=== PATIENT | female | born 1955 | race Caucasian/White ===

== ENCOUNTER → 2020-07-07 06:45 | Outpatient (CLI) | payer MEDICARE, SELFPAY ==
[2020-07-07 16:12] LABS: SARS-CoV-2 RNA PCR Negative
== END ==
PROVIDERS: PCP Family Medicine; Visit Provider Nurse Practitioner Family
DX: J98.8 Other specified respiratory disorders (principal); Z20.822 Contact with and (suspected) exposure to COVID-19
CPT/HCPCS: C9803; U0003; U0005

== ENCOUNTER 2020-08-31 12:11 | Outpatient (CLI) | payer MEDICARE, SELFPAY ==
--- NOTE | ~2020-08-31 | XR_ITS ---
EXAMINATION: XR chest 2V DATE: 08/31/2020 12:30 INDICATION: Cough TECHNIQUE: Frontal and lateral views of the chest are obtained COMPARISON: 11/02/2018 FINDINGS: The lungs are free of acute opacities. There is no pleural effusion or pneumothorax. The ca rdiomediastinal silhouette is normal. There are bridging osteophytes at multiple levels in the spine, consistent with diffuse idiopathic skeletal hyperostosis (DISH). Suture anchors are noted in the rig ht humeral head. IMPRESSION: 1. No acute cardiopulmonary abnormality. Reviewed, dictated and finalized at location B.
== END 2020-08-31 12:12 | disposition home or self-care (01) ==
LOC: ANHIMG 12:13
PROVIDERS: PCP Family Medicine; Visit Provider Family Medicine
DX: R05 Cough (principal)
CPT/HCPCS: 71046

== ENCOUNTER 2020-09-14 14:18 | Outpatient (CLI) | payer MEDICARE, SELFPAY ==
--- NOTE | ~2020-09-14 | MM_ITS ---
EXAMINATION: MM screening marilou BI w cheri HISTORY: Screening TECHNIQUE: Craniocaudal and mediolateral oblique 3-D tomosynthesis images were obtained and synthetic 2-D images were generated. CAD analysis was submitted and interpreted. COMPARISON: Comparison to multiple prior studies sequentially, with oldest reviewed study dated 05/10. BREAST PARENCHYMAL COMPOSITION: The breasts are almost entirely fatty. FINDINGS: There is no evidence of suspicious mass, calcification, or architectural distortion to sugg est malignancy in either breast. There has been no suspicious interval change. IMPRESSION: 1. No mammographic evidence of malignancy. 2. Recommend routine screening mammography in one year. BI-RADS Category 1: Negative Reviewed, dictated and finalized at location A.
== END 2020-09-14 14:19 | disposition home or self-care (01) ==
LOC: ANHIMG 14:21
PROVIDERS: PCP Family Medicine; Visit Provider Family Medicine
DX: Z12.31 Encounter for screening mammogram for malignant neoplasm of breast (principal)
CPT/HCPCS: 77063; 77067

== ENCOUNTER 2022-01-15 09:22 | Observation (INO) | payer MEDICARE, MEDICAID, SELFPAY ==
[2022-01-15] VITALS (10 sets, daily range): BP systolic 139–169; BP diastolic 77–101; PULSE 88–106; RESP 15–22; TEMP 36.4–36.7; O2SAT 96–98; BMI 56.5
--- NOTE | 2022-01-15 | ECHO_ITS ---
Patient Info Name: Radha Carranza Age: 66 years : 1955 Gender: Female Ht: 64 in Wt: 300 lbs BSA: 2.56 m2 HR: 90 bpm BP: 138 / 77 mmHg Heart Rhythm: Sinus Rhythm Technical Quality: Fair Exam Date: 01/15/2022 1:32 PM Exam Location: [facility] Card Pulmonary Patient Status: Emergency Admit Date: 01/15/2022 Staff Ordering Physician: Sandra Lamb PA-C Brokerage Branch Manager: Charlette Leblanc RDCS Attending Provider: Joey Clark MD Referring Physician: Zainab VO; Exam Type: CA echo dop color flow w con Study Info Indications - new onset chf Complete two-dimensional, color flow and Doppler transthoracic echocardiogram is performed with contrast to opacify the left ventricle and to improve the deliniation of the left ventricle endocardial borders. Contrast/Agitated Saline Contrast/Ag. Saline: Definity Amount: 4.00 ml Administered By: Charlette Leblanc RDCS Existing IV Access: Yes IV Access Condition: patent with no signs of infiltration Summary 1. Technically difficult study due to body habitus. 2. Left ventricular systolic function is normal, estimated at 50-55%. 3. There is moderately increased left ventricular wall thickness. 4. The left ventricular diastolic function is grade I diastolic dysfunction. 5. Right ventricular systolic function is normal. 6. Right atrial chamber dimension is mildly enlarged. 7. There is mild aortic valve calcification. 8. There is mild to moderate aortic valve stenosis with a peak velocity of 199.94 cm/s, mean gradient of 9 mmHg, and aortic valve area of 1.26 cm2. Left Ventricle Left ventricular chamber dimension is normal. Left ventricular systolic function is normal, estimated at 50-55%. There is moderately increased left ventricular wall thickness. The left ventricular diastolic function is grade I diastolic dysfunction. Right Ventricle Right ventricular chamber dimension is not well visualized. Right ventricular systolic function is normal. Left Atria Left atrial chamber dimension is normal. Right Atria Right atrial chamber dimension is mildly enlarged. Aortic Valve There is no aortic valve regurgitation. The aortic valve is probable trileaflet. There is mild to moderate aortic valve stenosis with a peak velocity of 199.94 cm/s, mean gradient of 9 mmHg, and aortic valve area of 1.26 cm2. There is mild aortic valve calcification. Pulmonic Valve The pulmonic valve is not well visualized. Mitral Valve The mitral valve has thickened leaflets. There is trace mitral valve regurgitation. Tricuspid Valve There is trace tricuspid valve regurgitation. Pericardium/Pleural There is no pericardial effusion. Inferior Vena Cava Normal inferior vena cava with >50% collapse upon inspiration consistent with normal right atrial pressure. Aorta The aortic root size at the sinus of Valsalva is normal. Left Ventricular Outflow Tract Name Value Normal LVOT 2D LVOT Diameter 2.00 cm LVOT Doppler LVOT Peak Gradient 3 mmHg LVOT Mean Gradient 1 mmHg
--- NOTE | ~2022-01-15 | XR_ITS ---
XR chest 2V DATE: 01/15/2022 09:46 INDICATION: Shortness of breath for 3 days. TECHNIQUE: PA and lateral views COMPARISON: 08/31/2020 PA and lateral chest FINDINGS: Borderline heart size. There is pulmonary vascular congestion and redistribution. Minimal b lunting of the costophrenic angles suggests small pleural effusions. Mild central and lower lung zone infiltrates may indicate pulmonary edema. Aortic arch calcification and mild aortic unfolding. No pneumothorax. There are 2 anchor devices overlying the right proximal humerus. There is osteopenia . There is diffuse idiopathic skeletal hyperostosis and mild dextro scoliosis of the thoracic spine. IMPRESSION: Congestive heart failure, pulmonary edema Reviewed, dictated and finalized at location B. NESS PROCESS LEAD
--- NOTE | ~2022-01-15 | CT_ITS ---
EXAMINATION: CTA chest PE protocol DATE: 01/15/2022 12:39 MONOTYPE KEYBOARD OPERATOR INDICATION: Shortness of breath for 3 days. TECHNIQUE: Computed tomographic angiography (CTA) of the chest was performed with 100 mL Omnipaque-35 0 intravenous contrast. The dose-length product was 1066.80 mGy-cm. Maximum intensity projection 3D-r econstructions of the aorta and other arteries were constructed by the technologist on a separate wor kstation. COMPARISON: Chest x-ray dated 01/15/2022. FINDINGS: No large central pulmonary embolism. Evaluation of peripheral pulmonary arteries limited by bolus contrast timing. Heart size normal. Small pleural effusions. Surgical changes of the stomach a re seen. Small hiatal hernia. There are mild diffuse groundglass opacities with areas of interlobular septal thickening, likely mild edema. No endobronchial lesions. No focal pneumonia. No thoracic lymp hadenopathy. Moderate thoracic spondylosis. No acute osseous abnormality. IMPRESSION: 1. Mild diffuse groundglass opacification with interlobular septal thickening, most likely mild edema . 2: No large central pulmonary embolism. 3: Small pleural effusions. Reviewed, dictated and finalized at location A. TYPE KEYBOARD OPERATOR IMPRESSION: 1. Mild diffuse groundglass opacification with interlobular septal thickening, most likely mild edema. 2: No large central pulmonary embolism. 3: Small pleural effusions.
--- NOTE | ~2022-01-15 | US_ITS ---
EXAMINATION: US venous doppler [facility] DATE: 01/15/2022 22:53 INDICATION: Lower limb pain and swelling TECHNIQUE: Grayscale ultrasound images without and with compression and Doppler ultrasound images of the bilateral lower extremity veins were obtained. COMPARISON: None. FINDINGS: The visualized portions of right common femoral vein, profunda (deep) femoral vein, femoral vein, pop liteal vein, posterior tibial veins, peroneal veins, gastrocnemius vein and greater saphenous vein ou tflow are patent. The visualized portions of left common femoral vein, profunda femoral vein, femoral vein, popliteal v ein, posterior tibial veins, peroneal veins, gastrocnemius vein and greater saphenous vein outflow ar e patent. IMPRESSION: 1. No deep venous thrombosis in either lower limb. Reviewed, dictated and finalized at location A. ESS CENTER ATTENDANT
--- NOTE | 2022-01-15 09:34 | ECG_ITS ---
Measurements Intervals [place] Rate: 90 P: 52 [place]: 170 QRS: -16 QRSD: 106 T: 110 QT: 374 QTc: 458 Interpretive Statements SINUS RHYTHM WITH FREQUENT ECTOPIC PREMATURE COMPLEXES NONSPECIFIC ST & T-WAVE ABNORMALITY NO PREVIOUS ECG AVAILABLE FOR COMPARISON Electronically Signed On 01-15-2022 15:33:14 SECURITY PUBLIC SAFETY OFFICER by Griselda Bergman M.D.
[2022-01-15 10:32] LABS: Influenza A QL RT-PCR Negative (Negative); Influenza B QL RT-PCR Negative (Negative); RSV RNA, RT-PCR Negative (Negative); SARS-CoV-2 RNA PCR Negative
--- NOTE | 2022-01-15 11:29 | ED.SOB ---
HPI - SOB/Dyspnea General Chief Complaint: Shortness of Breath/Dyspnea <Sandra Lamb PA-C - Last Filed: 01/15/22 13:23> Stated Complaint: sob <Sandra Lamb PA-C - Last Filed: 01/15/22 13:23> Time Seen by Provider: 01/15/22 11:11 <RENZO Mcgill Last Filed: 01/15/22 13:23> Source: patient <RENZO Mcgill Last Filed: 01/15/22 13:23> Mode of arrival: ambulatory <RENZO Mcgill Last Filed: 01/15/22 13:23> Limitations: no limitations <RENZO Mcgill Last Filed: 01/15/22 13:23> History of Present Illness HPI Narrative: Patient is a 66-year-old female who presents to the ED with report of shortness of breath. Patient reports having increased shortness of breath, worse with any type of exertion over the last 3 days. She recently traveled to and from [place] and thought it may be due to the climate changes. She states she is now feeling winded even with walking across her house to use the restroom. She has noticed some swelling in her hands and feet, as well. She denies chest pain. Mild cough, but denies congestion, sore throat, rhinorrhea, fevers, abdominal pain, nausea, vomiting, BLE pain, calf pain. Patient denies history of COPD, CHF, CAD, PE or DVT. <Sandra Lamb PA-C - Last Filed: 01/15/22 13:23> Related Data Allergies/Adverse Reactions: Allergies Allergy/AdvReac Type Severity Reaction Status Date / Time NSAIDS (Non-Steroidal AdvReac Unknown Other Verified 01/15/22 11:34 Anti-Inflamma <Sandra Lamb PA-C - Last Filed: 01/15/22 13:23> Review of Systems Review of Systems: CONSTITUTIONAL: Denies fever, chills, or sweats. ENT: Denies rhinorrhea, congestion, sore throat. CARDIOVASCULAR: Reports edema to hands and feet. Denies chest pain. RESPIRATORY: Reports mild cough, dyspnea, CABRERA. GASTROINTESTINAL: Denies abdominal pain, nausea, vomiting. MUSCULOSKELETAL: Denies BLE pain. <Sandra Lamb PA-C - Last Filed: 01/15/22 13:23> CONSTITUTIONAL: Denies night sweats. EYES: No eye pain ENT: Denies rhinorrhea CARDIOVASCULAR: Denies palpitations RESPIRATORY: Denies hemoptysis GASTROINTESTINAL: Denies hematemesis GENITOURINARY: Denies hematuria. SKIN: Denies rash MUSCULOSKELETAL: Denies myalgia. NEUROLOGIC: Denies weakness. PSYCHIATRIC: Denies delusions <Joey Clark MD - Last Filed: 01/15/22 15:11> All systems reviewed & are unremarkable except as noted in HPI and below <Sandra Lamb PA-C - Last Filed: 01/15/22 13:23> PMFSH Past Medical History Medical History: Medical History Acute bronchitis At high risk for falls (~06/2021) Bilateral chronic knee pain Bilateral shoulder pain Breast cancer screening by mammogram mammogram normal on 09/14/2020 Chronic bilateral low back pain with bilateral sciatica Chronic cough Congestion of upper airway Essential (primary) hypertension Folic acid deficiency (09/15/20) folic acid low at 3.3 on 09/15/2020 Herpesviral vesicular dermatitis Mild intermittent asthma in adult without complication Morbid obesity with BMI of 60.0-69.9, adult Osteoporosis Tinea pedis (~06/04/21) UTI (urinary tract infection) (03/09/20) <Sandra Lamb PA-C - Last Filed: 01/15/22 13:23> Surgical History Surgical History: Surgical History No pertinent past surgical history <Sandra Lamb PA-C - Last Filed: 01/15/22 13:23> Family History Family History: Family History Grandparent Diabetes mellitus Family history of malignant neoplasm of bone Sibling Family history of hypercholesterolemia Patient's sister is in good health Father Malignant neoplasm of prostate, Onset Age: 76 Mother Family history of lung cancer, Onset Age: 61 Family history o
[2022-01-15 11:38] LABS: Basophils Absolute Auto 0.1 K/mm3 (0.0-0.1); Eosinophils Absolute Auto 0.2 K/mm3 (0-0.3); Eosinophils Percent Auto 2.8 % (0-4.4); Hematocrit 36.9 % (37.0-47.0); Hemoglobin 11.9 g/dL (12.0-15.0); Immature Granulocyte Absolute 0.02 K/mm3 (0.00-0.031); Immature Granulocyte Percent A 0.3 % (0-0.5); Lymphocytes Absolute Auto 1.12 K/mm3 (0.9-3.2); Lymphocytes Percent Auto 18.1 % (18.3-44.2); Mean Corpuscular HGB Conc 32.2 g/dl (32-36); Mean Corpuscular Hemoglobin 27.5 pg (26-34); Mean Corpuscular Volume 85.4 fl (80-100); Mean Platelet Volume 9.3 fl (7.4-10.4); Monocytes Absolute Auto 0.4 K/mm3 (0.1-0.6); Neutrophils Absolute Auto 4.4 K/mm3 (1.3-6.7); Neutrophils Percent Auto 71.8 % (45.5-73.1); Platelet Count Result 234 k/mm3 (150-375); Red Blood Count 4.32 M/mm3 (4.2-5.4); Red Cell Distribution Width 15.3 % (11.5-14.5); White Blood Count 6.2 K/mm3 (4.5-10.0)
[2022-01-15 11:49] LABS: Alanine Aminotransferase 17 U/L (6-35); Albumin Level 4.4 g/dL (3.5-5.1); Alkaline Phosphatase 76 U/L (38-126); Anion Gap 8 mmol/L (8-16); Aspartate Amino Transferase 26 U/L (14-36); Bilirubin,Total 0.9 mg/dL (0.2-1.3); Blood Urea Nitrogen 9 mg/dL (7-17); Calcium 9.1 mg/dL (8.4-10.2); Carbon Dioxide 26 mmol/L (22-30); Chloride 107 mmol/L (98-107); Estimated CRCL calculation 127 ml/min; Estimated Glomerular Filt Rate > 60; Glucose 110 mg/dL (65-110); Potassium 3.9 mmol/L (3.4-5.0); Sodium 141 mmol/L (137-145)
[2022-01-15 12:08] LABS: D Dimer 2.08 ug/mL (<0.48)
[2022-01-15 12:18] LABS: NT Pro B Type Natriuretic Pept 1640 pg/mL (5-100); Troponin I 0.036 ng/mL (0.000-0.034)
[2022-01-15] MEDS: FUROSEMIDE INJ 40 MG/4 ML VIAL IV PUSH ×2 (13:11→23:13)
--- NOTE | 2022-01-15 13:50 | PM.CNCAR ---
Assessment and Plan Assessment and plan (1) Acute CHF (congestive heart failure): Qualifiers: Heart failure type: unspecified Qualified Code(s): I50.9 - Heart failure, unspecified Code(s): I50.9 - Heart failure, unspecified Status: Acute Assessment and Plan: Presents with progressive dyspnea with exertion. CXR shows pulmonary edema and small pleural effusions seen on chest CTA. BNP elevated at 1640. Has been given one dose of IV Lasix with improvement in shortness of breath. CHF likely diastolic in etiology. Echo is pending. Continue with IV furosemide, 40mg IV b.i.d. Daily BMP while diuresing Low Na diet Accurate intake and output Daily weights On spironolactone at home. This should be continued. Will adjust/add medical therapy when echocardiogram has been reviewed. She takes ibuprofen daily at home for her osteoarthritis. Would recommend finding alternative treatment other than NSAIDs. Counseled her on the importance of weight loss DVT prophylaxis (2) Dyspnea on exertion: Code(s): R06.09 - Other forms of dyspnea Status: Acute Assessment and Plan: Secondary to CHF. Plan as above (3) Morbid obesity with BMI of 60.0-69.9, adult: Code(s): E66.01 - Morbid (severe) obesity due to excess calories; Z68.44 - Body mass index [BMI] 60.0-69.9, adult Status: Acute Assessment and Plan: Weight loss counseling performed. (4) Essential (primary) hypertension: Code(s): I10 - Essential (primary) hypertension Status: Acute Assessment and Plan: Continue spironolactone. May require an additional agent for better BP control. History of Present Illness History of Present Illness Consult date/time: 01/15/22 13:50 Requesting physician: Sandra Lamb PA-C Consult reason: congestive heart failure Reason For Visit: sob Narrative: Ms. Carranza is a 66 year old female with a history of hypertension, osteoarthritis, morbid obesity (status post gastric sleeve in 2008). This is a patient who presents to the emergency department with a chief complaint of shortness of breath. She began noticing shortness of breath about 10 days ago following a long car trip from [place]. She attributed her shortness of breath to sitting in the car and the change of weather. Her breathing got better for a few days but about 3 days ago she began to notice more dyspnea. Her shortness of breath has progressively gotten worst over these few days and she states she is barely able to walk to the bathroom without having to take a break to catch her breath. She has also noticed some mild ankle edema as well as some swelling in her fingers making it difficult to wear her ring. She denies any orthopnea, paroxysmal nocturnal dyspnea, syncope, presyncope. She does endorse occasional palpitations. She denies any chest pain. Review of Systems Constitutional: Constitutional: Denies chills, Denies fever(s), Denies headache(s) and Denies malaise Eyes: Eyes: Denies change in vision ENT: Reports Normal hearing present, Denies dizziness, Denies headache(s) and Denies hearing loss Cardiovascular: Cardiovascular: Denies chest pain, Denies chest pain at rest, Denies chest pain with activity, Denies syncope, Reports pedal edema, Denies leg edema and Denies palpitations Respiratory: Respiratory: Denies cough, Reports dyspnea, Reports dyspnea on exertion and Denies wheezing Gastrointestinal: Gastrointestinal: Denies abdominal pain, Denies constipation and Denies diarrhea Genitourinary: Genitourinary: Denies hematuria and Denies dysuria Musculoskeletal: Musculoskeletal: Denies myalgias, Reports arthralgias, Reports joint swelling and Denies muscle cramps Integumentary/Breasts: Skin/Breast: Denies wounds Neurologic: Reports Normal hearing present, Denies confusion, Denies dizziness, Denies syncope and Denies headache(s) Psychiatric: Psychiatric: Denies anxiety, Denie
[2022-01-15] MEDS: PERFLUTREN LIPID MICROSPHERES 1.5 ML VIAL DILUTED TO 10 ML TOTAL VOLUME IV PUSH (14:10)
--- NOTE | 2022-01-15 15:00 | PM.IMHP ---
H&P: HPI History of Present Illness Date/Time: 01/15/22 15:00 Chief Complaint: Shortness of breath. Narrative: This is a very pleasant 66-year-old female with history of hypertension, asthma, obstructive sleep apnea on CPAP, morbid obesity status post gastric sleeve in 2008, and osteoarthritis with chronic knee pain secondary to the same who presented to the ED from home for evaluation of shortness of breath. Last month she traveled to [place] [facility] via car for a wedding and since that time she has had progressive shortness of breath to the point where she is getting winded when walking around the home. She has also noticed some swelling in her legs and fingers and endorses 3 pillow orthopnea which is relatively new over the past several days. Also she has had sensations of racing heart and some palpitations with minimal activity. On arrival to the ED her vital signs were stable. Pertinent labs include a D-dimer 2.08, troponin 0.040, proBNP 1640. CTA of the chest was negative for pulmonary embolism but did note mild edema and small pleural effusions. Chest x-ray showed the same. She is being admitted in this setting for diuresis and further workup of presumed new onset CHF. She was given Lasix 40 milligrams IV push in the ED and she reports a significant response. She denies syncope, near syncope, chest pain, pleuritic pain, nausea, vomiting, and sweats. Review of Systems Review of Systems: Twelve systems were reviewed and are negative except for as per HPI. [facility] Past Medical History Medical History (Updated 01/15/22 @ 20:50 by Preethi Jarvis PA-C) Bilateral chronic knee pain Bilateral shoulder pain Chronic bilateral low back pain with bilateral sciatica Essential (primary) hypertension Mild intermittent asthma in adult without complication Morbid obesity Obstructive sleep apnea on CPAP Osteoporosis Surgical History Surgical History (Updated 01/15/22 @ 20:46 by Preethi Jarvis PA-C) History of repair of right rotator cuff History of sleeve gastrectomy (2008) Family History Family History Grandparent Diabetes mellitus Family history of malignant neoplasm of bone Sibling Family history of hypercholesterolemia Patient's sister is in good health Father Malignant neoplasm of prostate, Onset Age: 76 Mother Family history of lung cancer, Onset Age: 61 Family history of primary malignant neoplasm of liver, Onset Age: 61 Family history of malignant neoplasm of ovary, Onset Age: 61 Social History Social History (Updated 01/15/22 @ 20:47 by Preethi Jarvis PA-C) Social History: Surrogate medical decision maker: Maria Teresa Moreno, daughter. Code status: Full code. Smoking status: Never smoker Alcohol intake: never Substance use: never Substance use type: does not use Lack of Transportation: No Lack of Food: Never True Current Housing: I Have Housing Concerned About Future Housing: No Difficulty Paying Gas/Electric Bills: No Difficulty Paying for Meds: No Currently Unemployed: No Education: Grade School Difficulty w/ Childcare or Family Care: No Additional living arrangements comments: . Daughter, son-in-law, and 2 grand children live with her. Additional occupation/education comments: Retired. Spiritual care concerns: No Meds Home Medications and Allergies Home Medications Medication Instructions Recorded Confirmed Type alendronate 10 mg tablet 10 mg PO DAILY #90 tabs 07/19/21 Rx alprazolam 0.25 mg tablet (Xanax) 0.25 mg PO TID PRN anxiety #270 07/19/21 Rx tabs atorvastatin 20 mg tablet 20 mg PO DAILY #90 tabs 07/19/21 Rx bupropion HCl 300 mg 24 hr tablet, 300 mg PO QAM #90 tabs 07/19/21 Rx extended release (Wellbutrin XL) cholecalciferol (vitamin D3) 125 5,000 unit PO DAILY #90 caps 07/19/21 Rx mcg (5,000 unit) capsule duloxetine 30 mg c
[2022-01-15 15:26] LABS: Troponin I 0.037 ng/mL (0.000-0.034)
[2022-01-15 16:22] LABS: Anion Gap 12 mmol/L (8-16); Blood Urea Nitrogen 8 mg/dL (7-17); Calcium 9.6 mg/dL (8.4-10.2); Carbon Dioxide 26 mmol/L (22-30); Chloride 102 mmol/L (98-107); Estimated CRCL calculation 108 ml/min; Estimated Glomerular Filt Rate > 60; Glucose 113 mg/dL (65-110); Potassium 3.8 mmol/L (3.4-5.0); Sodium 140 mmol/L (137-145)
--- NOTE | 2022-01-15 16:25 | PC.NURSE ---
heart healthy food tray ordered
--- NOTE | 2022-01-15 19:55 | ADMGEN ---
This patient, Radha Carranza, was admitted to IMU Room 206-02. Patient/family oriented to hospital policies and general routines including ID bracelet, bed and alarms, visiting hours, pain management, procedures, bathroom and other care routines, personal items, smoking policy, room service/diet, and visiting hours. Information on how to activate the Rapid Response Team has been discussed. Patient/Family are encouraged to report perceived risks to care and to ask questions if they do not understand what they are told or what they should do.
[2022-01-16] VITALS: PULSE 84; RESP 20; O2SAT 96
[2022-01-16] MEDS: ACETAMINOPHEN 325 MG TABLET 650 MG PO (00:01)
[2022-01-16 02:00] VITALS: PULSE 88
[2022-01-16 04:00] VITALS: BP 139/60; PULSE 76; PULSE 86; RESP 20; TEMP 36.6; O2SAT 97
[2022-01-16 04:59] LABS: Magnesium 1.7 mg/dL (1.6-2.3)
[2022-01-16 06:00] VITALS: PULSE 78
[2022-01-16] MEDS: LEVOTHYROXINE SODIUM 75 MCG TABLET PO (06:26)
[2022-01-16 08:00] VITALS: BP 136/68; PULSE 87; PULSE 89; RESP 16; TEMP 36.2; O2SAT 94
[2022-01-16] MEDS: ALENDRONATE SODIUM 10 MG TABLET PO (08:31)
[2022-01-16] MEDS: ENOXAPARIN 40 MG/0.4 ML SYRINGE SUB-Q (08:33)
[2022-01-16] MEDS: MONTELUKAST SODIUM 10 MG TABLET PO (08:34)
[2022-01-16] MEDS: CHOLECALCIFEROL 1,000 UNITS TABLET 5000 UNITS PO (08:34)
[2022-01-16] MEDS: SPIRONOLACTONE 25 MG TABLET PO (08:35)
[2022-01-16] MEDS: FOLIC ACID 1 MG TABLET PO (08:35)
[2022-01-16] MEDS: DULoxetine HCL 30 MG CAPSULE.DR PO (08:35)
[2022-01-16] MEDS: PANTOPRAZOLE 40 MG TABLET PO (08:35)
[2022-01-16] MEDS: buPROPion HCL XL (24 HR) 150 MG TABCR 300 MG PO (08:35)
[2022-01-16] MEDS: FUROSEMIDE INJ 40 MG/4 ML VIAL IV PUSH (08:36)
[2022-01-16] MEDS: ATORVASTATIN 20 MG TABLET PO (08:36)
--- NOTE | 2022-01-16 10:00 | PM.DS ---
DS: Admitting Diagnosis Discharge Date 01/16/22 1000 Admitting Diagnosis CHF exacerbation DS: Discharge Diagnosis Discharge Diagnosis (1) Acute congestive heart failure: Onset Date: 01/11/22 Code(s): I50.9 - Heart failure, unspecified Status: Acute (2) Systolic murmur: Code(s): R01.1 - Cardiac murmur, unspecified Status: Acute (3) Obstructive sleep apnea on CPAP: Code(s): G47.33 - Obstructive sleep apnea (adult) (pediatric); Z99.89 - Dependence on other enabling machines and devices Status: Acute (4) Essential (primary) hypertension: Code(s): I10 - Essential (primary) hypertension Status: Acute (5) Morbid obesity: Code(s): E66.01 - Morbid (severe) obesity due to excess calories Status: Inactive Plan The patient presented to the ED for evaluation of progressive dyspnea on lesser and lesser exertion in addition to edema and orthopnea as detailed in HPI. Workup in the ED was significant for elevated troponin and BNP and findings of pulmonary edema and pleural effusions on imaging, presumably new onset CHF, likely diastolic. She will be judiciously diurese with IV Lasix b.i.d. with close monitoring of volume status renal function, and I/O. She is on spironolactone at home which will also be continued. Echocardiogram has been ordered for further evaluation, including evaluation of systolic murmur heard at the upper sternal border. Cardiology has been consulted and their recommendations are greatly appreciated. Blood pressures have been running high and are not at goal. They will be monitored closely in adjustments will be made to her medication regimen accordingly. CPAP will be provided for the patient to use while hospitalized. Weight reduction is imperative and was discussed. She had a gastric sleeve done in 2008 and lost quite a bit of weight but gained a majority of that back. Her home medications will be reviewed and resumed as appropriate. DS: Summary Hospital Course Hospital Course: Patient is 66-year-old female with a past medical history morbid obesity, hypertension, asthma, obstructive sleep apnea, who presented to the ED with complaints of shortness of breath. Upon arrival it was noted that patient did have an elevated D-dimer CTA did not show any pulmonary embolism. CTA did note pulmonary edema with small pleural effusions. Chest x-ray showed the same. Patient was given IV Lasix and is reporting feeling a lot better. Troponins were obtained and were flat at this time. Cardiology was consulted and dizzy the patient. Patient is feeling a lot better and is excited about wanting to go home. Cardiology would like patient to go home on 40 mg of p.o. Lasix per day. Did educate patient about CHF monitoring. She currently denies any chest pain, shortness a breath, nausea, vomiting, diarrhea, constipation, weakness or fatigue. Patient has been up and down to the commode by herself. Labs and vital signs are stable at this time. Patient is being discharged to home with a follow-up appointment cardiology in 3 weeks. Time Spent with Patient Time attestation: Total time spent providing and/or coordinating discharge services: Exam Narrative: General: well-nourished, well-appearing 66-year-old female, sitting up in bed, comfortable, NARD Neuro: awake, alert and oriented x4, speech clear, no focal neuro deficits noted HEENMT: normocephalic, atraumatic, EOMI, sclerae anicteric, moist oral mucosa Respiratory: diminished to auscultation bilaterally without crackles, rhonchi or wheezes, nonlabored breathing Cardio: regular rate, regular rhythm with S1-S2 Abdomen: nondistended, normoactive bowel sounds, soft, nontender to palpation Extremities: 2+ pitting edema bilateral lower extremities, no erythema, or tenderness to palpation, DP pulses 2+ bilaterally Skin: no rashes or lesions, warm and dry Psych: appropriate mood and affect, judgment and insight intact DS: Data Data Co
--- NOTE | 2022-01-16 10:29 | PM.PNCARD ---
Progress Note: A&P Assessment and Plan (1) Acute congestive heart failure: Code(s): I50.9 - Heart failure, unspecified Status: Acute Plan Echo showed preserved LVEF with moderately increased LV wall thickness, grade 1 diastolic dysfunction, mild-moderate . Patient is now euvolemic. Would discharge patient on Lasix 40mg daily. Continue Spironolactone. Patient can follow up with us in clinic. She takes ibuprofen daily at home for her osteoarthritis.? Would recommend finding alternative treatment other than NSAIDs. Subjective Date/time seen: 01/16/22 10:29 Interval history: Reason for visit: Decompensated heart failure. Patient feeling well this AM. No shortness of breath or lower extremity edema. No other cardiac symptoms. Breathing is back to baseline. Review of Systems Review of Systems: 8-point ROS obtained. Negative, unless stated in HPI. Exam Const: General: comfortable, no acute distress, alert and awake Orientation/consciousness: patient oriented x3 HENMT: Mouth: Yes moist mucous membranes Eyes: General: appearance normal, both eyes and all related structures Sclera: sclerae normal Neck: Neck: normal visual inspection and supple Resp: Effort & Inspection: normal respiratory effort Auscultation: clear to auscultation bilaterally Cardio: Rate: regular rate Rhythm: regular rhythm Heart sounds: S1 normal heart sound present, S2 normal heart sound present and no murmurs Skin: General skin exam: normal color Neuro: General: patient oriented x3 Speech: normal speech Extrem: General: normal to inspection Psych: Appearance: grossly normal Mental Status: mental status grossly normal Objective Data Vital Signs Vital Signs: Vital Signs - 24 hr 01/15/22 11:32 01/15/22 11:47 01/15/22 13:41 Temperature Pulse Rate 90 93 Respiratory Rate 15 18 Blood Pressure 139/77 156/79 H Pulse Oximetry 98 98 97 Oxygen Delivery Room Air 01/15/22 17:20 01/15/22 19:05 01/15/22 19:52 Temperature 36.7 C Pulse Rate 88 88 88 Respiratory Rate 20 20 Blood Pressure 156/97 H 150/83 H Pulse Oximetry 97 96 Oxygen Delivery 01/15/22 20:00 01/15/22 22:00 01/15/22 23:43 Temperature 36.7 C Pulse Rate 88 94 95 Respiratory Rate 20 Blood Pressure 169/90 H Pulse Oximetry 96 Oxygen Delivery 01/16/22 00:00 01/16/22 00:00 01/16/22 02:00 Temperature Pulse Rate 84 84 88 Respiratory Rate 20 Blood Pressure Pulse Oximetry 96 Oxygen Delivery Room Air 01/16/22 04:00 01/16/22 04:00 01/16/22 04:00 Temperature 36.6 C Pulse Rate 76 86 86 Respiratory Rate 20 20 Blood Pressure 139/60 Pulse Oximetry 97 97 Oxygen Delivery Room Air 01/16/22 06:00 01/16/22 08:00 Temperature 36.2 C L Pulse Rate 78 89 Respiratory Rate 16 Blood Pressure 136/68 Pulse Oximetry 94 Oxygen Delivery Intake/Output Intake/Output: Intake & Output 01/13/22 01/14/22 01/15/22 01/16/22 23:59 23:59 23:59 23:59 Intake Total 950 Output Total 500 2500 Balance -500 -1550 Meds/Results Medications: Active Medications Generic Name Dose Route Start Last Admin Trade Name Freq PRN Reason Stop Dose Admin Acetaminophen 650 mg 01/15/22 23:28 01/16/22 00:01 Acetaminophen 325 Mg Tablet PO 650 mg Q6H PRN Administration Mild Pain (1-3) or Fever Alendronate Sodium 10 mg 01/16/22 08:00 01/16/22 08:31 Alendronate Sodium 10 Mg Tablet PO 10 mg DAILY@0630 PALLAVI Administration Alprazolam 0.25 mg 01/15/22 23:17 Alprazolam (*Crx) 0.25 Mg Tablet PO TID PRN anxiety Atorvastatin Calcium 20 mg 01/16/22 09:00 01/16/22 08:36 Atorvastatin 20 Mg Tablet PO 20 mg DAILY PALLAVI Administration Bupropion HCl 300 mg 01/16/22 09:00 01/16/22 08:35 Bupropion Hcl Xl (24 Hr) 150 Mg Tabcr PO 300 mg QAM PALLAVI Administration Duloxetine HCl 30 mg 01/16/22 09:00 01/16/22 08:35 Duloxetine Hcl 30 Mg Capsule.Dr PO 30 mg TWYLA
== END 2022-01-16 12:15 | disposition home or self-care (01) ==
LOC: ANHED 13:13 → ANHIMU 19:15
PROVIDERS: Nurse Practitioner; Physician Assistant; Admitting Provider Chiropractor; Emergency Provider Emergency Medicine; PCP Family Medicine; Visit Provider Student in an Organized Health Care Education/Training Program
DX: I11.0 Hypertensive heart disease with heart failure (principal); I50.9 Heart failure, unspecified; R01.1 Cardiac murmur, unspecified; G47.33 Obstructive sleep apnea (adult) (pediatric); Z99.89 Dependence on other enabling machines and devices; E66.01 Morbid (severe) obesity due to excess calories; J45.909 Unspecified asthma, uncomplicated; G89.29 Other chronic pain; M54.50 Low back pain, unspecified; R00.0 Tachycardia, unspecified; R06.82 Tachypnea, not elsewhere classified; Z91.81 History of falling; Z20.822 Contact with and (suspected) exposure to COVID-19; B00.1 Herpesviral vesicular dermatitis; I35.0 Nonrheumatic aortic (valve) stenosis; J81.1 Chronic pulmonary edema; I70.0 Atherosclerosis of aorta; R94.31 Abnormal electrocardiogram [ECG] [EKG]; Z68.43 Body mass index [BMI] 50.0-59.9, adult; Z98.84 Bariatric surgery status; M81.0 Age-related osteoporosis without current pathological fracture; Z79.1 Long term (current) use of non-steroidal anti-inflammatories (NSAID); Z79.899 Other long term (current) drug therapy; Z80.42 Family history of malignant neoplasm of prostate; Z80.1 Family history of malignant neoplasm of trachea, bronchus and lung; Z80.0 Family history of malignant neoplasm of digestive organs; Z80.41 Family history of malignant neoplasm of ovary; Z80.8 Family history of malignant neoplasm of other organs or systems
CPT/HCPCS: 36415; 71046; 71275; 80048; 80053; 83735; 83880; 84443; 84484; 85025; 85380; 87637; 93005; 93970; 96372; 96374; 96376; 99285; A9270; C8929; G0378; J1650; J1940; Q9957; Q9967

== ENCOUNTER → 2024-06-18 00:44 | Day surgery (SDC) | payer MEDICARE, MEDICAID, SELFPAY ==
[2024-06-17 14:57] VITALS: BMI 56.2
--- OUTSIDE RECORDS SUMMARY | 2024-06-18 00:47 | XMS_ITS | Clinical Summary ---
Author Organization [facility] Address [address] [place] [address] Care Team Providers Care Yarn Twister Name Role Phone Maxine Santos-RAMAN Primary Care Provider Unav ailable Maxine Santos Unavailable Unavailabl e Allergies No known active allergies Medications betamethasone dipropionate 0.05 % ointment APPLY TO AFFECTED AREA(S) THREE TIMES A DAY 0 8 Active vitamin B-12 (CYANOCOBALAMIN) 1000 mcg tablet Take 1 tablet by mouth daily. 8 Active Insulin Pen Needle (BD PEN NEEDLE NIKI U/F) 32G X 4 MM Misc 8 Active valACYclovir 1 g tablet Take 1 tablet by mouth every 12 (twelve) hours. 5 Active acetaminophen controlled release 650 MG Tab CR Active alendronate 10 MG tabletIndications:O steoporosis, unspecified osteoporosis type, unspecified pathological fracture presence Take 1 tablet (10 mg total) by mouth daily. 90 tablet 3 9 Active atorvastatin 20 MG tabletIndications:M ixed hyperlipidemia Take 1 tablet (20 mg total) by mouth nightly at bedtime. 90 tablet 3 9 Active fluoxetine 20 MG capsuleIndications: Depression, unspecified depression type Take 1 capsule (20 mg total) by mouth daily. 90 capsule 3 9 Active levothyroxine 75 MCG tabletIndications:H ypothyroidism, unspecified type Take 1 tablet (75 mcg total) by mouth daily. 90 tablet 3 9 Active omeprazole 20 MG capsuleIndications: Gastroesophageal reflux disease without esophagitis Take 1 capsule (20 mg total) by mouth daily. 90 capsule 3 9 Active spironolactone 25 MG tabletIndications:E ssential hypertension Take 1 tablet (25 mg total) by mouth daily. 90 tablet 3 9 Active zolpidem 10 MG tabletIndications:I nsomnia, unspecified type Take 1 tablet (10 mg total) by mouth nightly as needed for Sleep. 90 tablet 1 9 Active buPROPion SR 150 MG 12 hr tabletIndications:D epression Take 1 tablet (150 mg total) by mouth daily. 90 tablet 1 9 Active ibuprofen 800 MG tabletIndications:K nee pain Take 1 tablet (800 mg total) by mouth every 8 (eight) hours as needed for Pain. 90 tablet 3 9 Active triamcinolone 0.1 % creamIndications:Ec zema, unspecified type APPLY THIN COAT TO AFFECTED AREA TWICE A DAY IN THE MORNING AND IN THE EVENING 453 g 3 9 Active BUPROPION SR 150 MG 12 hr tabletIndications:D epression TAKE 1 TABLET BY MOUTH EVERY DAY 90 tablet 2 9 Active VITAMIN D2, ERGOCALCIFEROL, 36136 UNITS capsuleIndications: Vitamin D deficiency TAKE ONE CAPSULE BY MOUTH ONCE WEEKLY 4 capsule 9 Active Active Problems Problem Noted Date Diagnosed Date Dysuria 11/25/2017 Lesion of right external ear 11/25/2017 UTI symptoms 11/25/2017 Insomnia 10/22/2017 Elevated parathyroid hormone 09/01/2017 Nausea 09/08/2014 History of sleeve gastrectomy 09/08/2014 Knee osteoarthritis 01/11/2014 Acne 10/15/2013 Allergic rhinitis 10/15/2013 Arthritis 10/15/2013 Depression 10/15/2013 Eczema 10/15/2013 GERD (gastroesophageal reflux disease) 4 Hyperlipidemia 10/15/2013 Hypertension 10/15/2013 Hypothyroidism 10/15/2013 Low back pain 10/15/2013 Morbid obesity 10/15/2013 Obstructive sleep apnea 10/15/2013 Osteoporosis 10/15/2013 Shoulder pain 10/15/2013 Vitamin B12 deficiency 10/15/2013 Vitamin D deficiency 10/15/2013 Family History Medical History Relation Comments Prostate Cancer Father Cancer Mother ovarian, colon, lung Relation Status Comments Father Mother Social History Tobacco Use Types Packs/Day Years Used Date Smoking Tobacco: Never Comments Unknown Sex and Gender Information Value Date Recorded Sex Assigned at Not on file Legal Sex Female 10:46 PM CDT Gender Identity Not on file Sexual Orientation Not on file Last Filed Vital Signs Vital Sign Reading Time Taken Comments Blood Pressure 142/90 03/06/2018 9:58 AM CUMULATIVE EFFECTS ANALYST Pulse 78 03/06/2018 9:58 AM CUMULATIVE EFFECTS ANALYST Temperature 37 C (98.6 F) 03/06/2018 9:58 AM CUMULATIVE EFFECTS ANALYST Respiratory Rate 16 03/06/2018 9:58 AM CUMULATIVE EFFECTS ANALYST Oxygen Saturation 98% 03/06/2018 9:58 AM CUMULATIVE EFFECTS ANALYST Inhaled Oxygen Concentration - - Weight 156.5 kg (345 lb) 03/06/2018 9:58 AM CUMULATIVE EFFECTS ANALYST Height 162.6 cm (5' 4 ) 03/06/2018 9:58 AM CUMULATIVE EFFECTS ANALYST Body Mass Index 59.22 03/06/2018 9:58 AM CUMULATIVE EFFECTS ANALYST Plan of Treatment Health Maintenance Due Date Last Done Comments Colorectal Cancer Screening Colonoscopy (10 Years) 1955 Hepatitis C 08/24/1973 DTaP, Tdap and Td Vaccines ( 1 - Tdap) 08/24/1974 Pneumococcal Vaccine: 50+ Ye ars (1 of 1 - PCV) 08/24/2005 Zoster Vaccines (1 of 2) 08/24/2005 Mammogram Screening 03/12/2020 03/12/2018 Annual Medicare Wellness Visit 08/24/2020 Dexa Scan (General) 08/24/2020 COVID-19 Vaccine ( - 2023-2 5 season) 2023 RSV Immunization or 60+ Years (1 - 1-dose 75+ series) 08/24/2030 Meningococcal B Vaccine Aged Out No l onger eligible based on patient's age to complete this topic Meningococcal Vaccine Aged Out No nila rosana eligible based on patient's age to complete this topic RSV Immunizations Under 20 Months Aged Out No longer eligible based on patient's age to complete this topic Procedures Procedure Name Priority Date/Time Associated Diagnosis Comments MG DIAG W HANANE BILAT DIGI Routine 03/12/2018 9:32 AM CUMULATIVE EFFECTS ANALYST Other abnormal and inconclusive findings on diagnostic imaging of breast Breast mass, right from Last 3 Months or Most Recently Relevant to Health Maintenance Results * MG ESA REYNA (03/12/2018 9:32 AM CUMULATIVE EFFECTS ANALYST) Anatomical Region Laterality Modality Breast Bilateral Mammography 03/12/2018 10:2 9 AM CUMULATIVE EFFECTS ANALYST Impressions 03/12/2018 10:35 AM CUMULATIVE EFFECTS ANALYST ===== IMPRESSION: ===== 1. 12 mm mixed echogenicity mass in the right breast suspicious for resolving hematoma. Other etiologies not entirely excluded. Assessment: ACR BI-RADS Category 3 - Probably benign. Recommendation: 1: Follow-up diagnostic mammogram right in 6 months Examination: Breast ultrasound Findings: See combined report above. Comments: Repeat right diagnostic mammogram and ultrasound in 6 months recommended for reevaluation of mass suspicious for but not definitive of hematoma. Narrative 03/12/2018 10:35 AM CUMULATIVE EFFECTS ANALYST Examination: Bilateral diagnostic mammogram and ultrasound of the left breast. [id number] Exam Date/Time: 03/12/2018 8:50 AM Clinical history: Palpable abnormality in the right breast. No prior breast procedures. No personal or family history of breast cancer. Comparison: None. Today is establishment of baseline. Technique: Digital bilateral diagnostic mammography and ultrasound of the right breast was performed. This study was read with the assistance of a computer-aided detection system. Tissue density: The breast tissue contains scattered fibroglandular densities. Findings: Benign axillary lymph nodes. Scattered benign punctate and lucent centered calcifications bilaterally. Near the palpable abnormality marker in the right breast is a well-circumscribed rounded mass measuring up to 14 mm in diameter. There is a peripheral fatty component suggesting lymph node morphology. On subsequent ultrasound evaluation of the area concern in the right breast at 2:00 position 12 cm from the nipple is seen a well-circumscribed 9 x 12 x 4 mm lesion with mixed internal echogenic 80. There is a echogenic predominant component with a smaller peripheral hypoechoic component. This may represent a resolving hematoma. Upon conversation with the patient, recent trauma from likely a grandchild is a likely consideration. She states that over the past 2 weeks the lesion has decreased in size as well. Atypical lymph node is not entirely excluded. No findings in the remainder of the bilateral breast to suggest malignancy. Maxine Santos BUFFING AND SUEDING 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-BC MAMMO Final Resul t from Last 3 Months or Most Recently Relevant to Health Maintenance Insurance MEDICARE Care Teams Yarn Twister Relationship Specialty Start Date End Date Maxine Santos FNP-BC PCP - General NURSE PRACTITIONER 03/10/18 Maxine Santos FNP-BC NURSE PRACTITIONER 03/10/18
--- OUTSIDE RECORDS SUMMARY | 2024-06-18 00:47 | XMS_ITS | Encounter Summary ---
Author Organization [facility] Address [address] [place] [address] Care Team Providers Care Computer Terminal Operator Name Role Phone Adi Haywood MD Primary Care Provider [phone] Maxine Santos Primary Care Provider Unav ailable Maxine Santos Primary Care Provider Unav ailable Maxine Santos Unavailable Unavailabl e Encounter Details Date Type Department Care Team (Latest Contact Info) Description 10/23/2017 Abstract [facility] Ro Douglas MD Social History Tobacco Use Types Packs/Day Years Used Date Smoking Tobacco: Never Comments Unknown Sex and Gender Information Value Date Recorded Sex Assigned at Not on file Legal Sex Female 10:46 PM CDT Gender Identity Not on file Sexual Orientation Not on file documented as of this encounter Plan of Treatment Not on file documented as of this encounter Visit Diagnoses Not on filedocumented in this encounter Care Teams Computer Terminal Operator Relationship Specialty Start Date End [place] [address] PCP - General 07/13/14 02/10/18 [place] [address] PCP - General NURSE PRACTITIONER 02/11/18 03/09/18 Maxine Santos FNP-BC [place], [place] [address] PCP - General NURSE PRACTITIONER 03/10/18 Maxine Santos, [facility]- [place], [place] [address] NURSE PRACTITIONER 03/10/18 documented as of this encounter
--- OUTSIDE RECORDS SUMMARY | 2024-06-18 00:47 | XMS_ITS | Referral Summary ---
Author Organization [facility] [place] 8 [facility] Address [address] [place] [address] Care Team Providers Care Striper Name Role Phone Romario Parada MD Primary Care Provider [phone] [phone] Encounters Date Type Department Care Team Description 05/19/2024 Results Follow-Up [facility] Cardiology at [address] [place] [phone] Priscilla Bergman MD 05/17/2024 Telephone [facility] Cardiology [address] [place] [address] [address] [place] [address] Priscilla Bergman MD 05/13/2024 10:15 AM CDT Ancillary Procedure [facility] Medical [facility] Cardiology [address] [place] [address] [address] [place] [phone] Nonrheumatic aortic valve stenosis from Last 3 Months Allergies No known active allergies Medications alendronate (FOSAMAX) 10 mg tablet Take 1 tablet (10 mg total) by mouth daily before breakfast 7 Active acetaminophen ER (TYLENOL) 650 mg 8 hr tablet Take 1 tablet (650 mg total) by mouth every 8 (eight) hours as needed for pain Active omeprazole (PriLOSEC) 20 mg capsule TK 1 C PO QD 10 7 Active levothyroxine (SYNTHROID, LEVOTHROID) 75 mcg tablet TK 1 T PO QD 11 7 Active spironolactone (ALDACTONE) 25 mg tablet spironolactone 25 mg tablet 9 Active zolpidem (AMBIEN) 10 mg tablet zolpidem 10 mg tablet 9 Active furosemide (LASIX) 40 mg tablet Take 1 tablet (40 mg total) by mouth daily Active buPROPion XL (WELLBUTRIN XL) 300 mg 24 hr tablet Take 1 tablet (300 mg total) by mouth every morning Active folic acid (FOLVITE) 1 mg tablet Take 1 tablet (1 mg total) by mouth daily Active montelukast (SINGULAIR) 10 mg tablet Take 1 tablet (10 mg total) by mouth nightly Active ALPRAZolam (XANAX) 0.25 mg tablet Take 1 tablet (0.25 mg total) by mouth nightly as needed for anxiety Active atorvastatin (LIPITOR) 20 mg tablet TAKE 1 TABLET BY MOUTH DAILY 100 tablet 2 3 Active buPROPion XL (WELLBUTRIN XL) 150 mg 24 hr tablet Take 1 tablet (150 mg total) by mouth every morning Active amLODIPine (NORVASC) 10 mg tabletIndicati ons:hypertensi on Take 1 tablet (10 mg total) by mouth daily 90 tablet 3 5 026 Active sacubitriL-dilia sartan (Entresto) 24-26 mg tabletIndicati ons:Chronic heart failure with preserved ejection fraction (HCC) Take 1 tablet by mouth 2 (two) times a day 180 tablet 3 5 Active Active Problems Problem Noted Date Diagnosed Date Nonrheumatic aortic valve stenosis 03/11/2024 Palpitations 03/15/2022 Lipid screening 03/15/2022 Hyperlipidemia 03/15/2022 Essential hypertension 02/13/2022 Morbid obesity with BMI of 50.0-59.9, adult ([facility] /HCC) 05/29/2015 Overview (05/17/2016): Morbid obesity due to excess calories Resolved Problems Problem Noted Date Diagnosed Date Resolved Date Diastolic heart failure 02/13/202202/12 Social History Tobacco Use Types Packs/Day Years Used Date Smoking Tobacco: Never Smokeless Tobacco: Never Tobacco Cessation:Counseling Given: Not Answered Comments Unknown Sex and Gender Information Value Date Recorded Sex Assigned at Not on file 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 Gender Identity Female 07/16/2017 11:39 AM CDT Sexual Orientation Not on file Last Filed Vital Signs Vital Sign Reading Time Taken Comments Blood Pressure 132/74 03/11/2024 10:09 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 Pulse 88 03/11/2024 10:09 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 Temperature - - Respiratory Rate - - Oxygen Saturation 98% 03/11/2024 10:09 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 Inhaled Oxygen Concentration - - Weight 150.1 kg (331 lb) 03/11/2024 10:09 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 Height 157.5 cm (5' 2 ) 03/11/2024 10:09 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 Body Mass Index 60.54 03/11/2024 10:09 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 Plan of Treatment Not on file Procedures Procedure Name Priority Date/Time Associated Diagnosis Comments TRANSTHORACIC ECHO (TTE) COMPLETE W DOPPLER/CF W CONTRAST Routine 05/13/2024 12:34 PM CDT Nonrheumatic aortic valve stenosis from Last 3 Months Results * TRANSTHORACIC ECHO (TTE) COMPLETE W DOPPLER/CF W CONTRAST (05/13/2024 12:34 PM CDT) LV EF 45-50 % CONS SCIMAGE Anatomical Region Laterality Modality Ultrasound 05/13/2024 10:3 1 AM CDT Narrative 05/13/2024 3:52 PM CDT [facility] Cardiology [address] [facility] [address], [place] [address] [address] [facility] [address], [place] [address] P:[phone] P:[phone] Echocardiographic Report Patient Name: RADHA DIAZ A : 1955 Study Date: 05/13/2024 10:31:13 AM Gender: F Tech: [id number] Location: [place] Ref Provider: PRISCILLA BERGMAN Height(Cm): 157 BSA: 2.56 Weight(Kg): 150.1 Heart Rate: 72 BP: 132 / 74 Quality: Definity contrast agent used to enhance endocardial border definition Order Provider: PRISCILLA BERGMAN PROCEDURES: Echocardiographic Report: Transthoracic echocardiogram with complete 2D, M-Mode, color Doppler examination and Definity contrast. INDICATIONS: Aortic Stenosis. MEASUREMENTS: 2D/MM Value Range Doppler Value Range EF Mod BP 49 % [ 54 - 74 ] KHADRA Vmax 0.90 cm2 [ 2.00 - 4.00 ] EF Teich MM 55 % [ 54 - 74 ] AV Mean PG 14 mmHg Estimated EF 45-50 % AV Peak Morro 2.47 m/s [ 1.00 - 1.70 ] LVIDd 2D 5.48 cm [ 3.80 - 5.20 ] AV Peak PG 24 mmHg LVIDd MM 5.77 cm [ 3.80 - 5.20 ] AV VTI 46.28 cm LVIDs 2D 3.61 cm [ 2.20 - 3.50 ] LVOT Diam 1.97 cm [ 1.70 - 2.10 ] LVIDs MM 4.09 cm [ 2.20 - 3.50 ] LVOT Peak Morro 0.73 m/s [ 0.70 - 1.10 ] LVPWd 2D 1.33 cm [ 0.60 - 0.90 ] LVOT VTI 13.98 cm LVPWd MM 1.27 cm [ 0.60 - 0.90 ] MV E Peak Morro 0.44 m/s [ 0.60 - 1.30 ] IVSd 2D 1.25 cm [ 0.60 - 0.90 ] MV A Peak Morro 0.90 m/s [ 1.00 - 1.20 ] IVSd MM 1.43 cm [ 0.60 - 0.90 ] MV Mean PG 2 mmHg [ 0 - 5 ] LA Dimension 2D 3.64 cm [ 2.70 - 3.80 ] MV PHT 71 msec [ 20 - 100 ] LA Dimension MM 3.54 cm [ 2.70 - 3.80 ] MVA PHT 3.08 cm2 [ 2.00 - 4.00 ] AoR Diam 2D 2.60 cm [ 2.70 - 3.70 ] MV Decel Time 320 msec [ 104 - 258 ] AoR Diam MM 3.18 cm [ 2.70 - 3.70 ] PV Peak Morro 1.06 m/s [ 0.40 - 0.80 ] LA Volume Index 45 cc/m2 [ 16 - 34 ] Lateral E` 0.07 m/s [ 0.10 - 0.15 ] E` 0.04 m/s E/E` 6 2D/MM Value Range Doppler Value Range - FINDINGS: Interpretation Site: Exam was interpreted at [facility]. Left Ventricle: Definity contrast agent used to visually enhance endocardial wall motion and contractility. Lot Number: [id number]. Moderate to severe concentric left ventricular hypertrophy. Mild enlargement of left ventricle cavity. Mild global left ventricular systolic dysfunction. Impaired diastolic relaxation Grade I. Ejection fraction is measured at 49 %. Ejection Fraction is visually estimated to be 45-50 %. Right Ventricle: Normal right ventricular size. Normal right ventricular systolic function. Left Atrium: There is mild enlargement of left atrium. Right Atrium: The right atrium is normal in size. Atrial Septum: Normal atrial septum. Mitral Valve: Mild mitral annular calcification. Trivial regurgitation of the mitral valve. There is no hemodynamically significant mitral stenosis by Doppler. Aortic Valve: Severe aortic stenosis. Mean gradient of 14.0 mmHg. Valve area of 0.9 cm2. Aortic cusps appear moderately calcified. Trileaflet aortic valve. Trace aortic valve regurgitation. Tricuspid Valve: Normal appearance of the tricuspid valve. Right ventricular systolic pressure could not be estimated due to inadequate visualization of the tricuspid regurgitation jet. Mild tricuspid regurgitation. Pulmonic Valve: Normal appearance of the pulmonic valve. No pulmonic stenosis. Trivial regurgitation in the pulmonic valve. Pericardium: Normal pericardium with no significant pericardial effusion. Aorta: Normal aortic root. IVC: Normal size and normal respiratory collapse consistent with normal right atrial pressure (<5 mmHg). CONCLUSIONS: Definity contrast agent used to visually enhance endocardial wall motion and contractility. Lot Number: [id number]. Moderate to severe concentric left ventricular hypertrophy. Mild enlargement of left ventricle cavity. Mild global left ventricular systolic dysfunction. Impaired diastolic relaxation Grade I. Ejection fraction is measured at 49 %. Ejection Fraction is visually estimated to be 45-50 %. There is mild enlargement of left atrium. Severe aortic stenosis. Mean gradient of 14.0 mmHg. Valve area of 0.9 cm2. Aortic cusps appear moderately calcified. Trileaflet aortic valve. Trace aortic valve regurgitation. Mild tricuspid regurgitation. Normal sinus rhythm. Electronically Signed By: Prince Benjamin MD 05/13/2024 3:51:47 PM CDT Procedure Note Prince Benjamin MD - 05/13/2024 [facility] Cardiology [address] [facility] [address], [place] [address] [address] [facility] [address], [place] [address] P:[phone] P:[phone] Echocardiographic Report Patient Name: RADHA DIAZ A : 1955 Study Date: 05/13/2024 10:31:13 AM Gender: F Tech: [facility] Location: [facility] Provider: PRISCILLA BERGMAN Height(Cm): 157 BSA: 2.56 Weight(Kg): 150.1 Heart Rate: 72 BP: 132 / 74 Quality: Definity contrast agent used to enhance endocardial borderdefinition Order Provider: PRISCILLA BERGMAN PROCEDURES: Echocardiographic Report: Transthoracic echocardiogram with complete 2D, M-Mode, color Dopplerexamination and Definity contrast. INDICATIONS: Aortic Stenosis. MEASUREMENTS: 2D/MM Value Range Doppler ValueRange EF Mod BP 49 % [ 54 - 74 ] KHADRA Vmax 0.90cm2 [ 2.00 - 4.00 ] EF Teich MM 55 % [ 54 - 74 ] AV Mean PG 14mmHg Estimated EF 45-50 % AV Peak Morro 2.47m/s [ 1.00 - 1.70 ] LVIDd 2D 5.48 cm [ 3.80 - 5.20 ] AV Peak PG 24mmHg LVIDd MM 5.77 cm [ 3.80 - 5.20 ] AV VTI 46.28cm LVIDs 2D 3.61 cm [ 2.20 - 3.50 ] LVOT Diam 1.97 cm[ 1.70 - 2.10 ] LVIDs MM 4.09 cm [ 2.20 - 3.50 ] LVOT Peak Morro 0.73m/s [ 0.70 - 1.10 ] LVPWd 2D 1.33 cm [ 0.60 - 0.90 ] LVOT VTI 13.98cm LVPWd MM 1.27 cm [ 0.60 - 0.90 ] MV E Peak Morro 0.44m/s [ 0.60 - 1.30 ] IVSd 2D 1.25 cm [ 0.60 - 0.90 ] MV A Peak Morro 0.90m/s [ 1.00 - 1.20 ] IVSd MM 1.43 cm [ 0.60 - 0.90 ] MV Mean PG 2 mmHg[ 0 - 5 ] LA Dimension 2D 3.64 cm [ 2.70 - 3.80 ] MV PHT 71 msec[ 20 - 100 ] LA Dimension MM 3.54 cm [ 2.70 - 3.80 ] MVA PHT 3.08cm2 [ 2.00 - 4.00 ] AoR Diam 2D 2.60 cm [ 2.70 - 3.70 ] MV Decel Time 320msec [ 104 - 258 ] AoR Diam MM 3.18 cm [ 2.70 - 3.70 ] PV Peak Morro 1.06m/s [ 0.40 - 0.80 ] LA Volume Index 45 cc/m2 [ 16 - 34 ] Lateral E` 0.07m/s [ 0.10 - 0.15 ] E` 0.04 m/s E/E` 6 2D/MM Value Range Doppler ValueRange - FINDINGS: Interpretation Site: Exam was interpreted at [facility]. Left Ventricle: Definity contrast agent used to visually enhance endocardial wall motionand contractility. Lot Number: [id number]. Moderate to severe concentric leftventricular hypertrophy. Mild enlargement of left ventricle cavity. Mild global leftventricular systolic dysfunction. Impaired diastolic relaxation Grade I. Ejectionfraction is measured at 49 %. Ejection Fraction is visually estimated to be 45-50 %. Right Ventricle: Normal right ventricular size. Normal right ventricular systolicfunction. Left Atrium: There is mild enlargement of left atrium. Right Atrium: The right atrium is normal in size. Atrial Septum: Normal atrial septum. Mitral Valve: Mild mitral annular calcification. Trivial regurgitation of the mitralvalve. There is no hemodynamically significant mitral stenosis by Doppler. Aortic Valve: Severe aortic stenosis. Mean gradient of 14.0 mmHg. Valve area of 0.9 cm2.Aortic cusps appear moderately calcified. Trileaflet aortic valve. Trace aortic valveregurgitation. Tricuspid Valve: Normal appearance of the tricuspid valve. Right ventricular systolicpressure could not be estimated due to inadequate visualization of the tricuspidregurgitation jet. Mild tricuspid regurgitation. Pulmonic Valve: Normal appearance of the pulmonic valve. No pulmonic stenosis. Trivialregurgitation in the pulmonic valve. Pericardium: Normal pericardium with no significant pericardial effusion. Aorta: Normal aortic root. IVC: Normal size and normal respiratory collapse consistent with normal rightatrial pressure (<5 mmHg). CONCLUSIONS: Definity contrast agent used to visually enhance endocardial wall motionand contractility. Lot Number: [id number]. Moderate to severe concentric leftventricular hypertrophy. Mild enlargement of left ventricle cavity. Mild global leftventricular systolic dysfunction. Impaired diastolic relaxation Grade I. Ejectionfraction is measured at 49 %. Ejection Fraction is visually estimated to be 45-50 %. There is mild enlargement of left atrium. Severe aortic stenosis. Mean gradient of 14.0 mmHg. Valve area of 0.9 cm2.Aortic cusps appear moderately calcified. Trileaflet aortic valve. Trace aortic valveregurgitation. Mild tricuspid regurgitation. Normal sinus rhythm. Electronically Signed By: Prince Benjamin MD 05/13/2024 3:51:47 PM CDT [facility] Acosta Bergman MD CV ECHO PROCEDURES Kaykay rylee Result from Last 3 Months Insurance [facility] MEDICARE ADVANTAGE MEDICARE [facility] MEDICARE ADVANTAGE Care Teams Striper Relationship Specialty Start Date End Date Romario Parada MD [address] [id number] PCP - General 05/29/15
--- OUTSIDE RECORDS SUMMARY | 2024-06-18 00:47 | XMS_ITS | Clinical Summary ---
Author Organization [facility] Address [address] [place] [address] Care Team Providers Care Post Acute Care Nurse Practitioner Name Role Phone Romario Parada MD Primary Care Provider [phone] [phone] Allergies No known active allergies Medications alendronate (FOSAMAX) 10 mg tablet Take 1 tablet (10 mg total) by mouth daily before breakfast 1 7 Active acetaminophen ER (TYLENOL) 650 mg [...] Morbid obesity with BMI of 50.0-59.9, adult ([facility] /HCC) 05/29/2015 Overview (05/17/2016): Morbid obesity due to excess calories Resolved Problems Problem Noted Date Diagnosed Date Resolved Date Diastolic heart failure 02/13/202202/12 Encounters Date Type Department Care Team Description 05/19/2024 Results Follow-Up [facility] Cardiology at [address] [place] [address] Priscilla Bergman MD 05/17/2024 Telephone [facility] Cardiology [address] [place] [address] [address] [place] [address] Priscilla Bergman MD 05/13/2024 10:15 AM CDT Ancillary Procedure [facility] Cardiology [address] [facility] [address] [place] [address] Nonrheumatic aortic valve stenosis from Last 3 Months Surgical History Surgery Date Site/Laterality Comments ROTATOR CUFF REPAIR Rotator cuff repair Medical History Medical History Date Comments Hx Other Medical 2015 gastric sleeve; Comments: CAC 05/29/2015 - Hypertension Osteoporosis Osteoarthritis Depression Family History Medical History Relation Name Comments Prostate cancer Father Cancer, pros [place]; Ovarian cancer Mother Cancer, ovari an; Relation Name Status Comments Father Mother Social History Tobacco Use Types Packs/Day Years Used Date Smoking Tobacco: Never Smokeless Tobacco: Never Tobacco Cessation:Counseling Given: Not Answered Comments Unknown Sex and Gender Information Value Date Recorded Sex Assigned at Not on file Legal Sex Female 4:03 AM 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 Gender Identity Female 07/16/2017 11:39 AM CDT Sexual Orientation Not on file Obstetrics History Last Filed Vital Signs Vital Sign Reading Time Taken Comments Blood Pressure 132/74 03/11/2024 10:09 AM NUTRITION TECH Pulse 88 03/11/2024 10:09 AM NUTRITION TECH Temperature - - Respiratory Rate - - Oxygen Saturation 98% 03/11/2024 10:09 AM NUTRITION TECH Inhaled Oxygen Concentration - - Weight 150.1 kg (331 lb) 03/11/2024 10:09 AM NUTRITION TECH Height 157.5 cm (5' 2 ) 03/11/2024 10:09 AM NUTRITION TECH Body Mass Index 60.54 03/11/2024 10:09 AM NUTRITION TECH Plan of Treatment Health Maintenance Due Date Last Done Comments Colon Cancer Screening-Colonoscopy 1955 Depression Screening 1955 Fall Risk Assessment 1955 Hepatitis C Screening 1955 Osteoporosis Screening-Bone Density Scan 1955 DTaP/Tdap/Td Vaccine (1 - Tdap) 08/24/1966 Hepatitis B Screening 08/24/1973 Pneumococcal vaccine 65+ (1 of 2 - PCV) 08/24/1974 Zoster Vaccine (1 of 2) 08/24/2005 Breast Cancer Screening-Mammogram 03/12/2019 019, 03/12/2018 Well Visit 65+ 08/24/2020 Covid-19 Vaccine ( season) 10/12/202309/2020, 09/20/2020 Influenza Vaccine (Season Ended) 2024 Procedures Procedure Name Priority Date/Time Associated Diagnosis [...] AM CDT Narrative 05/13/2024 3:52 PM CDT [facility] Cardiology [address] [facility] [address], [place] [address] [address] [facility] [address], [place] [address] P:[phone] P:[phone] Echocardiographic Report Patient Name: RADHA DIAZ A : 1955 Study Date: 05/13/2024 10:31:13 AM Gender: F Tech: [facility] Location: [place] Ref Provider: PRISCILLA BERGMAN Height(Cm): 157 BSA: [...] FINDINGS: Interpretation Site: Exam was interpreted at [facility]. Left Ventricle: Definity contrast agent used to [...] Procedure Note Prince Benjamin MD - 05/13/2024 [facility] Cardiology [address] [facility] [address] [address] [address] [facility] [address], [place] [address] P:[phone] P:[phone] Echocardiographic Report Patient Name: RADHA DIAZ A : 1955 Study Date: 05/13/2024 10:31:13 AM Gender: F Tech: [facility] Location: [place] Ref Provider: PRISCILLA BERGMAN Height(Cm): 157 BSA: [...] FINDINGS: Interpretation Site: Exam was interpreted at [facility]. Left Ventricle: Definity contrast agent used to [...] Prince Benjamin MD 05/13/2024 3:51:47 PM CDT [facility] Acosta Bergman MD CV ECHO PROCEDURES Kaykay l Result from Last 3 Months Insurance [facility] MEDICARE ADVANTAGE MEDICARE [employer] [facility] MEDICARE ADVANTAGE Care Teams Post Acute Care Nurse Practitioner Relationship Specialty Start Date End Date Romario Parada MD [address] [address] PCP - General 05/29/15
--- OUTSIDE RECORDS SUMMARY | 2024-06-18 00:47 | XMS_ITS | Encounter Summary ---
Author Organization [facility] Healthcare Address [address] [place] [address] Care Team Providers Care Fare Collector Name Role Phone Romario Parada MD Primary Care Provider [phone] Encounter Details Date Type Department Care Team (Late st Contact Info) Description 05/19/2024 Results Follow-Up [facility] Medical Group Cardiology at [address] [place] [address] Griselda Bergman MD [address] [address] Social History Tobacco Use Types Packs/Day Years Used Date Smoking Tobacco: Never Smokeless Tobacco: Never Comments Unknown Sex and Gender Information Value Date Recorded Sex Assigned at Not on file 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
[2024-06-18 13:43] VITALS: BP 150/83; PULSE 79; RESP 20; TEMP 37.2; O2SAT 99; BMI 56.3
--- NOTE | 2024-06-18 13:45 | WPDHPUPDATE1 ---
History and Physical Update Update Date/Time: 06/18/24 13:45 History and Physical has been reviewed, including an updated exam of the patient. There are NO changes in the patient's condition. Risks, benefits, and alternatives have been discussed and questions answered. Patient agrees to proceed with procedure.
--- NOTE | 2024-06-18 15:00 | SUR.PREOP ---
A STEMI alert was called overhead after this patient had been moved in to the pathology laboratory director PACU. The decision was made by providers (cardiology and anesthesia) to cancel the procedure due to the emergent procedure in which cardiology was needed. The patient verbalized understanding and Dr. Bergman informed the patient that the office will contact her in order to reschedule the procedure. All questions were addressed by Dr. Bergman at the bedside, including questions regarding upcoming travel and any restrictions. [facility] and IV removed. The patient was assisted to POV in a wheelchair by RN.
== END ==
PROVIDERS: PCP Family Medicine; Visit Provider Internal Medicine
PROC: (CPT 93312; principal; 2024-06-18 13:00)
DX: I35.0 Nonrheumatic aortic (valve) stenosis (principal)
CPT/HCPCS: 99199; J7040

== ENCOUNTER 2024-10-08 01:58 | Day surgery (SDC) | payer MEDICARE, MEDICAID, SELFPAY ==
[2024-10-07 16:29] VITALS: BMI 56.9
--- NOTE | 2024-10-08 | ECHO_ITS ---
Patient Info Name: Radha Carranza Age: 69 years : 1955 Gender: Female Ht: 64 in Wt: 331 lbs BSA: 2.70 m2 Exam Date: 10/08/2024 10:23 AM Patient Status: O Admit Date: 10/08/2024 Exam Type: CA echo transesophageal Staff Attending Provider: Abraham Hammonds Summary 1. The aortic valve area is calculated to be 2cm2. The aortic valve leaflet is trileaflet and sclerotic without any significant stenosis. There is no aortic regurgitation. 2. There is normal biventricular size and systolic function. Medications The posterior pharynx was sprayed with Cetacaine spray. Monitored anesthesia care by anesthesia team. Please refer to their documentation for further medications. Procedure Details The patient arrived in a fasting state after obtaining informed consent. The transesophageal probe was passed into the posterior pharynx and mid-esophagus. Enough information were obtained at these levels and thus, the probe was not advanced into stomach due to her history of gastric sleeve surgery. Imaging was performed at multiple levels. The patient tolerated the procedure well and there were no complications. The patient was transferred out of the examination area in satisfactory condition. Left Ventricle The left ventricle is normal in size and systolic function. The overall left ventricular ejection fraction is visually estimated to be 60-65%. Right Ventricle The right ventricle is normal in size and systolic function. Left Atria The left atrium is mildly dilated. Right Atria The right atrium is normal size. Atrial Septum The atrial septum is normal. Atrial Appendage The left atrial appendage is free of thrombus. Aortic Valve The aortic valve area is calculated to be 2cm2. The aortic valve leaflet is trileaflet and sclerotic without any significant stenosis. There is no aortic regurgitation. Pulmonic Valve The pulmonic valve is grossly normal. There is no pulmonic valve regurgitation. Mitral Valve The mitral valve is normal. There is no mitral regurgitation. Tricuspid Valve The tricuspid valve is normal. There is no tricuspid regurgitation. Pulmonary Veins Doppler velocity profiles are normal indicating no obstruction of flow, normal left-sided filling pressures. Pericardium/Pleural Pericardium is normal in appearance with no evidence for significant pericardial effusion. Aorta The visualized portions of the aorta is normal. Report Signatures
--- OUTSIDE RECORDS SUMMARY | 2024-10-08 02:04 | XMS_ITS | Encounter Summary ---
Author Organization [facility] Healthcare Address [address] [place] [address] Care Team Providers Care Mounter Clarinets Name Role Phone Romario Parada MD Primary Care Provider [phone] Encounter Details Date Type Department Care Team (Late st Contact Info) Description 09/06/2024 Telephone [facility] Cardiology [address] [place] [address] Dudley Goldman MD [address] [facility] [address] [place] [address] Social History Tobacco Use Types Packs/Day Years Used Date Smoking Tobacco: Never Smokeless Tobacco: Never Comments Unknown Sex and Gender Information Value Date Recorded Sex Assigned at Not on file 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 Since then pt has been checking her BP 4-5 times a day and it has been better butstill elevated. Pt said her latest BPs from today are 144/87 and 140/90. Advised pt these readings may be a little higher than we prefer but they are not urgent or emergent. Advised pt to start checking her BP daily about an hour or two after her morning meds and to keep a log to bring with her at her upcoming appt with CT on 09/30. Pt verbalized understanding and appreciated the assistance. * Telephone Encounter - Ariane Richard - 09/07/2024 8:56 AM CDT Pt returned Rosalinda's call requesting a call back thank you Contact: * Telephone Encounter - Rosalinda Manzanares RN - 09/07/2024 8:48 AM CDT LM on requesting callback to discuss her concerns. * Telephone Encounter - Rosalinda Manzanares RN - 09/06/2024 4:18 PM CDT Tried calling pt but no answer and no VM available. Will try again later. * Telephone Encounter - Amanda Gutierrez - 09/06/2024 3:32 PM CDT Pt states her BP has been ranging from 143/88 up to 159/93 since 09/02. States her PCP prescribed her Buspar for her anxiety. She took Buspar on 09/02 and noticed her BP was elevated. She discontinued Buspar the next day. States she has not been able to control her BP since then. She did reach out toher PCP about this and her PCP stated she discontinue Buspar and reach out to accounts receivable accountant. Pt requesting call to discuss. Contact: documented in this encounter Plan of Treatment Not on file documented as of this encounter Visit Diagnoses Not on filedocumented in this encounter Care Teams Mounter Clarinets Relationship Specialty Start Date End Date Romario Parada MD [address] [address] PCP - General 05/29/15 documented as of this encounter
[2024-10-08 09:21] VITALS: BP 149/82; PULSE 83; RESP 16; O2SAT 98
--- NOTE | 2024-10-08 09:36 | WPDANESEPPF ---
Anes - Initial Pre Proc Eval Procedure: Operation Date: 10/08/24 10:30 Proposed Procedures p Trans Esophageal Echo JAMEY - Abraham Hammonds MD Date/Time: 10/08/24 09:36 Surgeon: Abraham Hammonds MD Pre Op Diagnosis: aortic stenosis Patient Data Age: 69 Gender: F Height: 1.63 m Weight: 150.4 kg Last Vital Signs Pulse 83 10/08/24 09:21 Resp 16 10/08/24 09:21 BP 149/82 H 10/08/24 09:21 Pulse Ox 98 10/08/24 09:21 O2 Del Method Room Air 10/08/24 09:21 Allergies Allergy/AdvReac Type Severity Reaction Status Date / Time No Known Allergies Allergy Verified 10/07/24 16:29 Home Medications ?Medication ?Instructions ?Recorded ?Confirmed ?Type sacubitril 24 mg-valsartan 26 mg 1 tablet PO BID 02/15/22 10/08/24 History tablet (Entresto) furosemide 40 mg tablet 40 mg PO DAILY PRN edema #90 tabs 07/10/22 10/07/24 Rx folic acid 1 mg tablet 1 mg PO DAILY #90 tabs 09/18/22 10/07/24 Rx amlodipine 5 mg tablet 10 mg PO DAILY 01/20/23 10/08/24 History spironolactone 25 mg tablet 25 mg PO DAILY #90 tabs 03/10/23 10/07/24 Rx bupropion HCl 300 mg 24 hr tablet, 300 mg PO QAM #90 tabs 09/23/23 10/08/24 Rx extended release (Wellbutrin XL) atorvastatin 20 mg tablet 20 mg PO DAILY #90 tabs 10/20/23 10/08/24 Rx alendronate 10 mg tablet 10 mg PO DAILY #90 tabs 11/04/23 10/08/24 Rx levothyroxine 75 mcg tablet 75 mcg PO DAILY #90 tabs 11/19/23 10/08/24 Rx alprazolam 0.25 mg tablet (Xanax) 0.25 mg PO TID PRN anxiety #270 06/15/24 10/07/24 Rx tabs bupropion HCl 150 mg 24 hr tablet, 150 mg PO QAM #90 tabs 07/21/24 10/08/24 Rx extended release (Wellbutrin XL) montelukast 10 mg tablet 10 mg PO DAILY #90 tabs 07/21/24 10/08/24 Rx (Singulair) omeprazole magnesium 20 mg 20 mg PO BID #180 caps 07/21/24 10/08/24 Rx capsule,delayed release hydrocodone 5 mg-acetaminophen 325 1 tablet PO QHS PRN pain #30 tabs 09/09/24 Rx mg tablet zolpidem 10 mg tablet 10 mg PO . q.h.s. PRN insomnia #90 09/28/24 10/07/24 Rx tabs Patient hx anesthesia problems: none Family hx anesthesia problems: none Results Review: All pre-operative results and documents have been reviewed as part of the pre-operative evaluation. [facility] Past Medical History Medical History (Updated 06/12/24 @ 19:48 by Romario Parada MD) Diastolic dysfunction without heart failure echo on 05/13/2024 with moderate to severe LVH with ejection fraction 49% with grade 1 diastolic dysfunction and severe aortic stenosis. Chronic pain knees, low back, shoulders. Medical cannabis 07/10/2022. Iron deficiency anemia, unspecified iron 49 with 12% saturation and ferritin 6 with hemoglobin 13.0 on 07/09/2022. Iron 103 with 29% saturation and ferritin 30 with hemoglobin 14.7 on 01/20/2023. Iron 150 with 32% saturation and ferritin 321 03/01/2024. Eczema Anxiety Fever blister Morbid obesity with BMI of 50.0-59.9, adult Anemia (01/15/22) hemoglobin 11.9 on 01/15/2022. Hemoglobin 13.0 on 07/09/2022 with vitamin B12 580 and folic acid 10.9 on 03/12/2022. Hemoglobin 14.7 on 01/20/2023. Hemoglobin 15.4 on 03/01/2024. Morbid obesity Acute congestive heart failure (01/11/22) Obstructive sleep apnea on CPAP APAP At 6-16 cm of water pressure With nasal mask 2020 Elevated troponin Dyspnea on exertion Bilateral chronic knee pain Morbid obesity with BMI of 60.0-69.9, adult Chronic bilateral low back pain with bilateral sciatica Mild intermittent asthma in adult without complication Osteoporosis Essential (primary) hypertension Bilateral shoulder pain Body mass index (bmi) 60.0-69.9, adult (07/15/18) Surgical History Surgical History History of sleeve gastrectomy (2008) History of repair of right rotator cuff No pertinent past surgical history Family History Family History Grandparent Diabetes mellitus Family history of malignant neoplasm of bone Sibling Family history of hypercholesterolemia Patient's sister is in good health Father Malignant neoplasm of prostate, Onset Age: 76 Mother Family history of lung cancer, Onset Age: 61 Family history of primary malignant neoplasm of liver, Onset Age: 61 Family history of malignant neoplasm of ovary, Onset Age: 61 Social History Social History Social History: Surrogate medical decision maker: Maria Teresa Moreno, daughter. Code status: Full code. Smoking status: Never smoker Alcohol intake: never Substance use: never Substance use type: does not use Lack of Transportation: No Lack of Food: Never True Current Housing: I Have Housing Concerned About Future Housing: No Difficulty Paying Gas/Electric Bills: No Difficulty Paying for Meds: No Currently Unemployed: No Education: Grade School Difficulty w/ Childcare or Family Care: No Living arrangements: with family Additional living arrangements comments: . Daughter, son-in-law, and 2 grand children live with her. Additional occupation/education comments: Retired. Spiritual care concerns: No Anes - Eval Final PreProcedure Day of Procedure 10/08/24 09:36 Patient weight: super morbidly obese Heart: regular rate and rhythm Lungs: clear to auscultation Airway: Mallampati scale class III Neurological: alert and oriented Last oral intake: >/= 8 hours ASA classification: IV Emergent: no Anesthetic plan: proceed Anesthesia type and monitoring: general GIVS and standard monitoring Results Review: All pre-operative results and documents have been reviewed as part of the pre-operative evaluation. Informed Consent: The patient's anesthetic plan and its attendant risks and benefits were discussed with the patient/family/POA. Questions were solicited and answers provided to the satisfaction of the patient/family/POA.
[2024-10-08 10:45] VITALS: BP 141/79; PULSE 83; RESP 18; O2SAT 97
[2024-10-08 11:00] VITALS: BP 133/77; PULSE 80; RESP 20; O2SAT 96
[2024-10-08 11:15] VITALS: BP 132/73; PULSE 79; RESP 20; O2SAT 95
[2024-10-08 11:30] VITALS: BP 139/75; PULSE 75; RESP 15; O2SAT 99
[2024-10-08 11:45] VITALS: BP 139/79; PULSE 79; RESP 20; O2SAT 98
== END 2024-10-08 12:00 | disposition home or self-care (01) ==
PROVIDERS: PCP Family Medicine; Visit Provider Internal Medicine
PROC: (CPT 93312; principal; 2024-10-08 10:30)
DX: I35.8 Other nonrheumatic aortic valve disorders (principal); I11.0 Hypertensive heart disease with heart failure; I50.32 Chronic diastolic (congestive) heart failure; E66.01 Morbid (severe) obesity due to excess calories; Z68.43 Body mass index [BMI] 50.0-59.9, adult
CPT/HCPCS: 93312; 93320; 93325; J2250; J3010; J7040